=== PATIENT | male | born 1985 | race Two or more races ===

== ENCOUNTER 2021-04-06 18:07 | Emergency (ER) | payer OTHER ==
[~2021-04-06] VITALS: Ht 188 cm; Wt 90.7 kg
[2021-04-06 18:29] VITALS: BP 117/75
[2021-04-06] MEDS ORDERED: PENICILLIN G BENZATHINE 2.4 MMU/4 ML ML IM ONE ×2 (18:49→19:00)
--- NOTE | 2021-04-06 19:17 | NUR ---
Patient discharged to home in stable condition. Written and verbal after care instructions given. Patient verbalizes understanding of instruction.Pt ambulatory with a steady gait
== END 2021-04-06 19:17 | disposition home or self-care (01) ==
LOC: ER 18:10
DX: A53.9 Syphilis, unspecified (principal); F10.10 Alcohol abuse, uncomplicated; F17.200 Nicotine dependence, unspecified, uncomplicated; Y90.9 Presence of alcohol in blood, level not specified
CPT/HCPCS: 96372; 99283; J0558

== ENCOUNTER 2021-05-15 14:43 | Emergency (ER) | payer OTHER ==
[~2021-05-15] VITALS: Ht 182.9 cm; Wt 90.7 kg
[2021-05-15 14:53] VITALS: BP 136/75
--- NOTE | 2021-05-15 15:17 | NUR ---
URINE SENT TO THE LAB
[2021-05-15 15:42] LABS: BILIRUBIN,URINE Negative (NEGATIVE); COLOR,URINE YELLOW (YELLOW); LEUKOCYTE ESTERASE ,URINE Negative (NEGATIVE); NITRITE, URINE Negative (NEGATIVE); PROTEIN,URINE Negative (NEGATIVE); UGLUCOSE Negative (NEGATIVE); UROBILINOGEN,URINE 0.2 EU/dL (0.2)
[2021-05-15 16:31] LABS: BACTERIA,URINE Rare /HPF (None Seen); SQUAMOUS EPITHELIAL CELL,UR 0-2 /HPF (None Seen); WBC,URINE 0-2 /HPF (0-3)
--- NOTE | 2021-05-15 16:37 | NUR ---
Patient discharged to home in stable condition. Written and verbal after care instructions given. Patient verbalizes understanding of instruction.
== END 2021-05-15 16:49 | disposition home or self-care (01) ==
LOC: ER 14:45
DX: N48.89 Other specified disorders of penis (principal); F17.210 Nicotine dependence, cigarettes, uncomplicated
CPT/HCPCS: 76870-TC; 81001; 87491; 87591